=== PATIENT | female | born 1970 | race Caucasian/White ===

== ENCOUNTER 2021-01-15 18:37 | Inpatient (IN) | payer OTHER ==
[2021-01-15] MEDS ORDERED: Dexamethasone 10 MG/ML VIAL ONE (19:11)
[2021-01-15] MEDS ORDERED: Acetaminophen 500 MG TAB ONE (19:11)
[2021-01-15 19:22] LABS: #Monocytes 0.4 10x3/uL (0.0-1.1); #Neutrophils 2.7 10x3/uL (1.5-8.4); %Basophils 0.2 % (0.0-2.0); %Lymphocytes 22.2 % (18.0-47.0); %Monocytes 9.6 % (0.0-10.0); %Neutrophils 67.3 % (40.0-75.0); Hemoglobin 13.4 g/dL (12.0-15.5); Mean Corpuscular HGB CONC 32.4 g/dL (32.0-36.0); Mean Corpuscular Hemoglobin 27.9 pg (27.0-33.0); Mean Corpuscular Volume 86.3 fl (81.6-98.3); Platelet Count 173 10x3/uL (150-450); RBC Distribution Width 13.5 % (11.5-14.5); White Blood Cell (WBC) Count 4.1 10x3/uL (3.5-10.5)
[2021-01-15 19:40] LABS: BHCG - Serum Negative (NEGATIVE); Pregs Control Background? CLEAR/WHITE (CLR/WHITE); Pregs Control Bar Appear? YES (CONTROL BAR)
[2021-01-15 19:45] LABS: ALT (SGPT) 13 U/L (8-55); AST (SGOT) 32 U/L (5-34); Albumin 3.7 g/dL (3.5-5.0); Alkaline Phosphatase 44 U/L (40-110); Anion Gap 14 mmol/L (10-20); BUN (Urea Nitrogen) 9 mg/dL (7.0-18.7); Bilirubin, Total 0.4 mg/dL (0.2-1.2); Calc. Creatinine Clearance 0 mL/min (70-130); Calcium 8.7 mg/dL (7.8-10.44); Carbon Dioxide 25 mmol/L (22-29); Chloride 101 mmol/L (98-107); Globulin 3.1 g/dL (2.4-3.5); Glucose 104 mg/dL (70-105); Potassium 3.8 mmol/L (3.5-5.1); Protein, Total 6.8 g/dL (6.0-8.3); Sodium 136 mmol/L (136-145)
[2021-01-15 20:02] LABS: Thyroid Stimulating Hormone 1.5467 uIU/mL (0.35-4.94)
[2021-01-15] MEDS ORDERED: Zolpidem Tartrate 5 MG TAB PO PRN (20:50)
[2021-01-15] MEDS ORDERED: HYDROcodone/Acetaminophen 5/325 mg Tablet PO PRN ×2 (20:50)
[2021-01-15] MEDS ORDERED: Acetaminophen 325 MG TAB PO PRN (20:50)
[2021-01-15] MEDS ORDERED: Guaifenesin DM 100-10/5 ML UDCUP PO PRN (20:50)
[2021-01-15] MEDS ORDERED: Calcium Carbonate 500 MG ChewTAB PO PRN (20:50)
[2021-01-15] MEDS ORDERED: Ventolin HFA Inhaler 60 PUFF INHALER INH PRN (20:53)
[2021-01-15] MEDS ORDERED: Benzonatate 100 MG CAP PO SCH (22:30)
[2021-01-15 23:01] VITALS: BMI 33.0
[2021-01-16] MEDS: Levothyroxine Sodium 88 MCG TAB PO SCH (05:33)
[2021-01-16 06:15] LABS: ALT (SGPT) 14 U/L (8-55); AST (SGOT) 29 U/L (5-34); Albumin 3.5 g/dL (3.5-5.0); Alkaline Phosphatase 50 U/L (40-110); Anion Gap 14 mmol/L (10-20); BUN (Urea Nitrogen) 9 mg/dL (7.0-18.7); Bilirubin, Total 0.3 mg/dL (0.2-1.2); CRP (Inflammatory) 7.33 mg/dL (= or < 0.5); Calc. Creatinine Clearance 111 mL/min (70-130); Calcium 8.9 mg/dL (7.8-10.44); Carbon Dioxide 27 mmol/L (22-29); Chloride 102 mmol/L (98-107); Globulin 3.1 g/dL (2.4-3.5); Glucose 187 mg/dL (70-105); Potassium 4.2 mmol/L (3.5-5.1); Protein, Total 6.6 g/dL (6.0-8.3); Sodium 139 mmol/L (136-145)
[2021-01-16 06:25] LABS: #Monocytes 0.1 10x3/uL (0.0-1.1); #Neutrophils 1.9 10x3/uL (1.5-8.4); %Basophils 0.4 % (0.0-2.0); %Lymphocytes 20.7 % (18.0-47.0); %Monocytes 5.1 % (0.0-10.0); Hemoglobin 13.6 g/dL (12.0-15.5); Mean Corpuscular HGB CONC 31.4 g/dL (32.0-36.0); Mean Corpuscular Hemoglobin 28.2 pg (27.0-33.0); Mean Corpuscular Volume 89.6 fl (81.6-98.3); Platelet Count 189 10x3/uL (150-450); RBC Distribution Width 13.7 % (11.5-14.5); Red Blood Cell (RBC) Count 4.83 10x6/uL (3.90-5.03); White Blood Cell (WBC) Count 2.6 10x3/uL (3.5-10.5)
[2021-01-16] MEDS: Zinc Gluconate 50 MG TAB PO SCH (08:35)
[2021-01-16] MEDS: Dexamethasone 4 mg/ml Vial SLOW IVP SCH (08:35)
[2021-01-16] MEDS: Enoxaparin Sodium 40 MG/0.4 ML SYRINGE SC SCH (08:35)
[2021-01-16] MEDS: Benzonatate 100 MG CAP PO SCH ×3 (08:35→20:28)
[2021-01-16] MEDS: Aspirin 81 mg Enteric Coated Tablet PO SCH (08:35)
[2021-01-16] MEDS: Ascorbic Acid 500 mg Chewable Tablet PO SCH (08:35)
[2021-01-16] MEDS: Cholecalciferol 1,000 UNITS (25 MCG) TAB PO SCH (08:35)
[2021-01-16] MEDS ORDERED: REMDESIVIR 200 MG in Sodium Chloride 0.9% 250 ML 210 ML IV SCH (10:00)
[2021-01-17 05:54] LABS: #Monocytes 0.7 10x3/uL (0.0-1.1); #Neutrophils 10.8 10x3/uL (1.5-8.4); %Basophils 0.2 % (0.0-2.0); %Lymphocytes 6.1 % (18.0-47.0); %Neutrophils 86.9 % (40.0-75.0); Hemoglobin 13.5 g/dL (12.0-15.5); Mean Corpuscular HGB CONC 32.1 g/dL (32.0-36.0); Mean Corpuscular Volume 87.3 fl (81.6-98.3); Platelet Count 240 10x3/uL (150-450); RBC Distribution Width 13.4 % (11.5-14.5); Red Blood Cell (RBC) Count 4.82 10x6/uL (3.90-5.03); White Blood Cell (WBC) Count 12.4 10x3/uL (3.5-10.5)
[2021-01-17] MEDS: Levothyroxine Sodium 88 MCG TAB PO SCH (06:16)
[2021-01-17 06:44] LABS: ALT (SGPT) 17 U/L (8-55); AST (SGOT) 29 U/L (5-34); Albumin 3.3 g/dL (3.5-5.0); Alkaline Phosphatase 55 U/L (40-110); Anion Gap 17 mmol/L (10-20); BUN (Urea Nitrogen) 15 mg/dL (7.0-18.7); Bilirubin, Direct 0.1 mg/dL (0.1-0.3); Bilirubin, Total 0.3 mg/dL (0.2-1.2); Calc. Creatinine Clearance 104 mL/min (70-130); Calcium 8.7 mg/dL (7.8-10.44); Carbon Dioxide 24 mmol/L (22-29); Chloride 103 mmol/L (98-107); Glucose 140 mg/dL (70-105); Potassium 3.9 mmol/L (3.5-5.1); Protein, Total 6.3 g/dL (6.0-8.3); Sodium 140 mmol/L (136-145)
[2021-01-17] MEDS: Ascorbic Acid 500 mg Chewable Tablet PO SCH (08:05)
[2021-01-17] MEDS: Dexamethasone 4 mg/ml Vial SLOW IVP SCH (08:05)
[2021-01-17] MEDS: Benzonatate 100 MG CAP PO SCH ×3 (08:05→20:36)
[2021-01-17] MEDS: Enoxaparin Sodium 40 MG/0.4 ML SYRINGE SC SCH (08:05)
[2021-01-17] MEDS: Cholecalciferol 1,000 UNITS (25 MCG) TAB PO SCH (08:05)
[2021-01-17] MEDS: Zinc Gluconate 50 MG TAB PO SCH (08:05)
[2021-01-17] MEDS: Aspirin 81 mg Enteric Coated Tablet PO SCH (08:06)
[2021-01-17] MEDS: REMDESIVIR 100 MG in Sodium Chloride 0.9% 250 ML 230 ML IV SCH (10:14)
[2021-01-18 04:56] LABS: Hemoglobin 14.2 g/dL (12.0-15.5); Mean Corpuscular HGB CONC 31.6 g/dL (32.0-36.0); Mean Corpuscular Hemoglobin 28.3 pg (27.0-33.0); Mean Corpuscular Volume 89.4 fl (81.6-98.3); Mean Platelet Volume 8.9 fl (7.4-10.4); Platelet Count 296 10x3/uL (150-450); RBC Distribution Width 13.7 % (11.5-14.5); Red Blood Cell (RBC) Count 5.02 10x6/uL (3.90-5.03); White Blood Cell (WBC) Count 10.8 10x3/uL (3.5-10.5)
[2021-01-18 05:20] LABS: ALT (SGPT) 17 U/L (8-55); AST (SGOT) 30 U/L (5-34); Albumin 3.6 g/dL (3.5-5.0); Alkaline Phosphatase 61 U/L (40-110); Anion Gap 14 mmol/L (10-20); BUN (Urea Nitrogen) 17 mg/dL (7.0-18.7); Bilirubin, Direct 0.2 mg/dL (0.1-0.3); Bilirubin, Total 0.3 mg/dL (0.2-1.2); Calc. Creatinine Clearance 105 mL/min (70-130); Calcium 9.4 mg/dL (7.8-10.44); Carbon Dioxide 28 mmol/L (22-29); Chloride 101 mmol/L (98-107); Glucose 161 mg/dL (70-105); Potassium 3.7 mmol/L (3.5-5.1); Protein, Total 7.2 g/dL (6.0-8.3); Sodium 139 mmol/L (136-145)
[2021-01-18] MEDS: Levothyroxine Sodium 88 MCG TAB PO SCH (06:21)
[2021-01-18] MEDS: REMDESIVIR 100 MG in Sodium Chloride 0.9% 250 ML 230 ML IV SCH (08:41)
[2021-01-18] MEDS: Enoxaparin Sodium 40 MG/0.4 ML SYRINGE SC SCH (08:41)
[2021-01-18] MEDS: Zinc Gluconate 50 MG TAB PO SCH (08:42)
[2021-01-18] MEDS: Cholecalciferol 1,000 UNITS (25 MCG) TAB PO SCH (08:42)
[2021-01-18] MEDS: Benzonatate 100 MG CAP PO SCH ×3 (08:42→20:02)
[2021-01-18] MEDS: Dexamethasone 4 mg/ml Vial SLOW IVP SCH (08:42)
[2021-01-18] MEDS: Ascorbic Acid 500 mg Chewable Tablet PO SCH (08:42)
[2021-01-18] MEDS: Aspirin 81 mg Enteric Coated Tablet PO SCH (08:42)
[2021-01-18] MEDS ORDERED: Enoxaparin Sodium 80 MG/0.8 ML SYRINGE SC SCH (11:45)
[2021-01-18 11:55] LABS: Hemoglobin A1c 6.1 % (4.0-6.0)
[2021-01-18] MEDS: Enoxaparin Sodium 80 MG/0.8 ML SYRINGE SC SCH (20:02)
[2021-01-19 05:13] LABS: ALT (SGPT) 16 U/L (8-55); AST (SGOT) 24 U/L (5-34); Albumin 3.1 g/dL (3.5-5.0); Alkaline Phosphatase 51 U/L (40-110); Bilirubin, Direct 0.2 mg/dL (0.1-0.3); Bilirubin, Total 0.4 mg/dL (0.2-1.2); Protein, Total 6.2 g/dL (6.0-8.3)
[2021-01-19] MEDS: Levothyroxine Sodium 88 MCG TAB PO SCH ×2 (05:49→07:17)
[2021-01-19] MEDS ORDERED: Enoxaparin Sodium 80 MG/0.8 ML SYRINGE ONE (07:40)
[2021-01-19] MEDS: Benzonatate 100 MG CAP PO SCH ×3 (08:46→20:32)
[2021-01-19] MEDS: Cholecalciferol 1,000 UNITS (25 MCG) TAB PO SCH (08:46)
[2021-01-19] MEDS: Aspirin 81 mg Enteric Coated Tablet PO SCH (08:46)
[2021-01-19] MEDS: Ascorbic Acid 500 mg Chewable Tablet PO SCH (08:46)
[2021-01-19] MEDS: Dexamethasone 4 mg/ml Vial SLOW IVP SCH (08:48)
[2021-01-19] MEDS: Enoxaparin Sodium 80 MG/0.8 ML SYRINGE SC SCH (08:48)
[2021-01-19] MEDS: Zinc Gluconate 50 MG TAB PO SCH (08:50)
[2021-01-19] MEDS: REMDESIVIR 100 MG in Sodium Chloride 0.9% 250 ML 230 ML IV SCH (08:51)
[2021-01-20] MEDS: Levothyroxine Sodium 88 MCG TAB PO SCH (05:47)
[2021-01-20 06:03] LABS: ALT (SGPT) 32 U/L (8-55); AST (SGOT) 57 U/L (5-34); Alkaline Phosphatase 77 U/L (40-110); Bilirubin, Direct 0.2 mg/dL (0.1-0.3); Bilirubin, Total 0.4 mg/dL (0.2-1.2)
[2021-01-20] MEDS: Benzonatate 100 MG CAP PO SCH ×4 (08:23→19:36)
[2021-01-20] MEDS: Dexamethasone 4 mg/ml Vial SLOW IVP SCH (08:23)
[2021-01-20] MEDS: Cholecalciferol 1,000 UNITS (25 MCG) TAB PO SCH (08:23)
[2021-01-20] MEDS: Ascorbic Acid 500 mg Chewable Tablet PO SCH (08:23)
[2021-01-20] MEDS: Aspirin 81 mg Enteric Coated Tablet PO SCH (08:23)
[2021-01-20] MEDS: Enoxaparin Sodium 40 MG/0.4 ML SYRINGE SC SCH (08:23)
[2021-01-20] MEDS: Zinc Gluconate 50 MG TAB PO SCH (08:26)
[2021-01-20] MEDS: REMDESIVIR 100 MG in Sodium Chloride 0.9% 250 ML 230 ML IV SCH (08:54)
[2021-01-21] MEDS: Levothyroxine Sodium 88 MCG TAB PO SCH (05:29)
[2021-01-21 06:22] LABS: #Basophils 0.1 10x3/uL (0.0-0.2); #Monocytes 0.8 10x3/uL (0.0-1.1); #Neutrophils 7.4 10x3/uL (1.5-8.4); %Basophils 0.5 % (0.0-2.0); %Lymphocytes 7.6 % (18.0-47.0); %Monocytes 8.2 % (0.0-10.0); %Neutrophils 79.1 % (40.0-75.0); Hemoglobin 13.2 g/dL (12.0-15.5); Mean Corpuscular HGB CONC 31.7 g/dL (32.0-36.0); Mean Corpuscular Hemoglobin 27.6 pg (27.0-33.0); Mean Corpuscular Volume 87.1 fl (81.6-98.3); Mean Platelet Volume 8.6 fl (7.4-10.4); Platelet Count 426 10x3/uL (150-450); Red Blood Cell (RBC) Count 4.79 10x6/uL (3.90-5.03); White Blood Cell (WBC) Count 9.3 10x3/uL (3.5-10.5)
[2021-01-21 06:25] LABS: ALT (SGPT) 31 U/L (8-55); AST (SGOT) 25 U/L (5-34); Albumin 2.9 g/dL (3.5-5.0); Alkaline Phosphatase 51 U/L (40-110); Anion Gap 14 mmol/L (10-20); BUN (Urea Nitrogen) 16 mg/dL (7.0-18.7); Bilirubin, Total 0.5 mg/dL (0.2-1.2); CRP (Inflammatory) 1.64 mg/dL (= or < 0.5); Calc. Creatinine Clearance 112 mL/min (70-130); Calcium 8.6 mg/dL (7.8-10.44); Carbon Dioxide 26 mmol/L (22-29); Chloride 102 mmol/L (98-107); Globulin 2.5 g/dL (2.4-3.5); Glucose 176 mg/dL (70-105); Potassium 4.2 mmol/L (3.5-5.1); Protein, Total 5.4 g/dL (6.0-8.3); Sodium 138 mmol/L (136-145)
[2021-01-21] MEDS: Dexamethasone 4 mg/ml Vial SLOW IVP SCH (08:28)
[2021-01-21] MEDS: Aspirin 81 mg Enteric Coated Tablet PO SCH (08:28)
[2021-01-21] MEDS: Ascorbic Acid 500 mg Chewable Tablet PO SCH (08:28)
[2021-01-21] MEDS: Zinc Gluconate 50 MG TAB PO SCH (08:28)
[2021-01-21] MEDS: Cholecalciferol 1,000 UNITS (25 MCG) TAB PO SCH (08:28)
[2021-01-21] MEDS: Benzonatate 100 MG CAP PO SCH ×3 (08:28→20:17)
[2021-01-21] MEDS: Enoxaparin Sodium 40 MG/0.4 ML SYRINGE SC SCH ×2 (08:28→20:23)
[2021-01-22 04:46] LABS: Anion Gap 15 mmol/L (10-20); BUN (Urea Nitrogen) 19 mg/dL (7.0-18.7); Calc. Creatinine Clearance 112 mL/min (70-130); Calcium 8.9 mg/dL (7.8-10.44); Carbon Dioxide 26 mmol/L (22-29); Chloride 99 mmol/L (98-107); Glucose 263 mg/dL (70-105); Potassium 4.7 mmol/L (3.5-5.1); Sodium 135 mmol/L (136-145)
[2021-01-22] MEDS: Levothyroxine Sodium 88 MCG TAB PO SCH (06:23)
[2021-01-22] MEDS: Aspirin 81 mg Enteric Coated Tablet PO SCH (08:03)
[2021-01-22] MEDS: Cholecalciferol 1,000 UNITS (25 MCG) TAB PO SCH (08:03)
[2021-01-22] MEDS: Dexamethasone 4 mg/ml Vial SLOW IVP SCH (08:03)
[2021-01-22] MEDS: Benzonatate 100 MG CAP PO SCH ×4 (08:03→20:34)
[2021-01-22] MEDS: Ascorbic Acid 500 mg Chewable Tablet PO SCH (08:03)
[2021-01-22] MEDS: Zinc Gluconate 50 MG TAB PO SCH (08:04)
[2021-01-22] MEDS: Enoxaparin Sodium 40 MG/0.4 ML SYRINGE SC SCH ×2 (08:04→20:07)
[2021-01-22] MEDS ORDERED: Dextrose 5% in Water 1,000 ML IV PRN (09:56)
[2021-01-22] MEDS ORDERED: Dextrose 50% Abboject 50 ML SYRINGE SLOW IVP PRN (09:56)
[2021-01-22] MEDS: HumaLOG 300 UNITS/3 ML VIAL SC PRN ×3 (12:31→20:32)
[2021-01-23] MEDS: Levothyroxine Sodium 88 MCG TAB PO SCH (05:27)
[2021-01-23] MEDS: HumaLOG 300 UNITS/3 ML VIAL SC PRN ×3 (06:07→22:04)
[2021-01-23 06:35] LABS: Hemoglobin 14.5 g/dL (12.0-15.5); Mean Corpuscular HGB CONC 32.3 g/dL (32.0-36.0); Mean Corpuscular Hemoglobin 27.9 pg (27.0-33.0); Mean Corpuscular Volume 86.5 fl (81.6-98.3); Mean Platelet Volume 8.2 fl (7.4-10.4); Platelet Count 520 10x3/uL (150-450); RBC Distribution Width 13.3 % (11.5-14.5); Red Blood Cell (RBC) Count 5.19 10x6/uL (3.90-5.03); White Blood Cell (WBC) Count 10.4 10x3/uL (3.5-10.5)
[2021-01-23 06:45] LABS: ALT (SGPT) 53 U/L (8-55); AST (SGOT) 37 U/L (5-34); Albumin 3.3 g/dL (3.5-5.0); Alkaline Phosphatase 64 U/L (40-110); Anion Gap 14 mmol/L (10-20); BUN (Urea Nitrogen) 19 mg/dL (7.0-18.7); Bilirubin, Total 0.5 mg/dL (0.2-1.2); CRP (Inflammatory) 0.77 mg/dL (= or < 0.5); Calc. Creatinine Clearance 111 mL/min (70-130); Calcium 8.8 mg/dL (7.8-10.44); Carbon Dioxide 29 mmol/L (22-29); Chloride 99 mmol/L (98-107); Glucose 169 mg/dL (70-105); Potassium 4.7 mmol/L (3.5-5.1); Protein, Total 6.3 g/dL (6.0-8.3); Sodium 137 mmol/L (136-145)
[2021-01-23 06:58] LABS: MDiff Complete? YES
[2021-01-23 07:02] LABS: Lymphocytes 4 % (21-51); Metamyelocyte 2 % (0-0); Monocytes 7 % (0-10); Myelocyte 1 % (0-0); Neutrophil 85 % (42-75); Reactive Lymphocytes 1 % (0-10)
[2021-01-23 07:03] LABS: Platelet Morphology Comment Appears Increased; RBC Morphology Normal
[2021-01-23] MEDS: Enoxaparin Sodium 40 MG/0.4 ML SYRINGE SC SCH ×2 (08:53→21:20)
[2021-01-23] MEDS: Aspirin 81 mg Enteric Coated Tablet PO SCH (08:54)
[2021-01-23] MEDS: Ascorbic Acid 500 mg Chewable Tablet PO SCH (08:54)
[2021-01-23] MEDS: Cholecalciferol 1,000 UNITS (25 MCG) TAB PO SCH (08:54)
[2021-01-23] MEDS: Dexamethasone 4 mg/ml Vial SLOW IVP SCH (08:54)
[2021-01-23] MEDS: Zinc Gluconate 50 MG TAB PO SCH (08:54)
[2021-01-23] MEDS: Benzonatate 100 MG CAP PO SCH ×3 (09:28→21:20)
[2021-01-24] MEDS: Levothyroxine Sodium 88 MCG TAB PO SCH (05:15)
[2021-01-24] MEDS: Dexamethasone 4 mg/ml Vial SLOW IVP SCH (09:20)
[2021-01-24] MEDS: Cholecalciferol 1,000 UNITS (25 MCG) TAB PO SCH (09:20)
[2021-01-24] MEDS: Aspirin 81 mg Enteric Coated Tablet PO SCH (09:20)
[2021-01-24] MEDS: Benzonatate 100 MG CAP PO SCH ×3 (09:20→23:10)
[2021-01-24] MEDS: Ascorbic Acid 500 mg Chewable Tablet PO SCH (09:20)
[2021-01-24] MEDS: Enoxaparin Sodium 40 MG/0.4 ML SYRINGE SC SCH (09:21)
[2021-01-24] MEDS: Zinc Gluconate 50 MG TAB PO SCH (09:21)
[2021-01-24] MEDS: HumaLOG 300 UNITS/3 ML VIAL SC PRN (20:51)
[2021-01-25 04:45] LABS: #Basophils 0.1 10x3/uL (0.0-0.2); #Monocytes 1.1 10x3/uL (0.0-1.1); #Neutrophils 9.4 10x3/uL (1.5-8.4); %Basophils 0.4 % (0.0-2.0); %Eosinophils 0.3 % (0.0-6.0); %Neutrophils 80.8 % (40.0-75.0); Hemoglobin 13.5 g/dL (12.0-15.5); Mean Corpuscular HGB CONC 31.4 g/dL (32.0-36.0); Mean Corpuscular Hemoglobin 27.7 pg (27.0-33.0); Mean Corpuscular Volume 88.3 fl (81.6-98.3); Mean Platelet Volume 8.3 fl (7.4-10.4); Platelet Count 530 10x3/uL (150-450); RBC Distribution Width 13.4 % (11.5-14.5); Red Blood Cell (RBC) Count 4.87 10x6/uL (3.90-5.03); White Blood Cell (WBC) Count 11.7 10x3/uL (3.5-10.5)
[2021-01-25 05:06] LABS: ALT (SGPT) 40 U/L (8-55); AST (SGOT) 19 U/L (5-34); Albumin 3.3 g/dL (3.5-5.0); Alkaline Phosphatase 66 U/L (40-110); Anion Gap 13 mmol/L (10-20); BUN (Urea Nitrogen) 20 mg/dL (7.0-18.7); Bilirubin, Total 0.5 mg/dL (0.2-1.2); Calc. Creatinine Clearance 114 mL/min (70-130); Calcium 8.7 mg/dL (7.8-10.44); Carbon Dioxide 26 mmol/L (22-29); Chloride 102 mmol/L (98-107); Globulin 2.8 g/dL (2.4-3.5); Glucose 182 mg/dL (70-105); Potassium 4.7 mmol/L (3.5-5.1); Protein, Total 6.1 g/dL (6.0-8.3); Sodium 136 mmol/L (136-145)
[2021-01-25] MEDS: Levothyroxine Sodium 88 MCG TAB PO SCH (06:28)
[2021-01-25] MEDS: Dexamethasone 4 mg/ml Vial SLOW IVP SCH (08:31)
[2021-01-25] MEDS: Benzonatate 100 MG CAP PO SCH ×3 (08:32→22:19)
[2021-01-25] MEDS: Zinc Gluconate 50 MG TAB PO SCH (08:32)
[2021-01-25] MEDS: Ascorbic Acid 500 mg Chewable Tablet PO SCH (08:32)
[2021-01-25] MEDS: Cholecalciferol 1,000 UNITS (25 MCG) TAB PO SCH (08:32)
[2021-01-25] MEDS: Aspirin 81 mg Enteric Coated Tablet PO SCH (08:32)
[2021-01-25] MEDS: Enoxaparin Sodium 40 MG/0.4 ML SYRINGE SC SCH (08:33)
[2021-01-26] MEDS: Levothyroxine Sodium 88 MCG TAB PO SCH (05:09)
[2021-01-26] MEDS: Ascorbic Acid 500 mg Chewable Tablet PO SCH (08:48)
[2021-01-26] MEDS: Zinc Gluconate 50 MG TAB PO SCH (08:48)
[2021-01-26] MEDS: Enoxaparin Sodium 40 MG/0.4 ML SYRINGE SC SCH (08:49)
[2021-01-26] MEDS: Cholecalciferol 1,000 UNITS (25 MCG) TAB PO SCH (08:49)
[2021-01-26] MEDS: Dexamethasone 4 MG TAB PO SCH (08:49)
[2021-01-26] MEDS: Aspirin 81 mg Enteric Coated Tablet PO SCH (08:49)
[2021-01-26] MEDS: Benzonatate 100 MG CAP PO SCH ×3 (08:50→22:04)
[2021-01-27] MEDS: Levothyroxine Sodium 88 MCG TAB PO SCH (05:28)
[2021-01-27 10:04] VITALS: BP 144/84; TEMP 98.4
[2021-01-27] MEDS: Zinc Gluconate 50 MG TAB PO SCH (10:20)
[2021-01-27] MEDS: Cholecalciferol 1,000 UNITS (25 MCG) TAB PO SCH (10:20)
[2021-01-27] MEDS: Enoxaparin Sodium 40 MG/0.4 ML SYRINGE SC SCH (10:20)
[2021-01-27] MEDS: Ascorbic Acid 500 mg Chewable Tablet PO SCH (10:20)
[2021-01-27] MEDS: Benzonatate 100 MG CAP PO SCH (10:20)
[2021-01-27] MEDS: Aspirin 81 mg Enteric Coated Tablet PO SCH (10:20)
[2021-01-27] MEDS: Dexamethasone 4 MG TAB PO SCH (10:20)
[2021-01-27 10:34] LABS: ALT (SGPT) 36 U/L (8-55); AST (SGOT) 18 U/L (5-34); Albumin 3.7 g/dL (3.5-5.0); Alkaline Phosphatase 53 U/L (40-110); Anion Gap 11 mmol/L (10-20); BUN (Urea Nitrogen) 19 mg/dL (7.0-18.7); Bilirubin, Total 0.7 mg/dL (0.2-1.2); Calc. Creatinine Clearance 112 mL/min (70-130); Carbon Dioxide 29 mmol/L (22-29); Chloride 101 mmol/L (98-107); Globulin 3.3 g/dL (2.4-3.5); Glucose 94 mg/dL (70-105); Sodium 137 mmol/L (136-145)
[2021-01-27 10:39] LABS: #Eosinphils 0.1 10x3/uL (0.0-0.5); #Monocytes 1.5 10x3/uL (0.0-1.1); #Neutrophils 8.6 10x3/uL (1.5-8.4); %Basophils 0.3 % (0.0-2.0); %Eosinophils 0.5 % (0.0-6.0); %Lymphocytes 10.8 % (18.0-47.0); %Monocytes 12.7 % (0.0-10.0); Hemoglobin 14.7 g/dL (12.0-15.5); Mean Corpuscular Hemoglobin 28.3 pg (27.0-33.0); Mean Corpuscular Volume 88.5 fl (81.6-98.3); Mean Platelet Volume 8.1 fl (7.4-10.4); Platelet Count 468 10x3/uL (150-450); RBC Distribution Width 13.9 % (11.5-14.5); White Blood Cell (WBC) Count 11.6 10x3/uL (3.5-10.5)
== END 2021-01-27 15:51 | disposition home or self-care (01) | DRG 871 ==
LOC: CSHERS 18:37 → CSHTELE 21:57
PROVIDERS: ADMIT Student in an Organized Health Care Education/Training Program; ATTEND Internal Medicine
PROC: 8E0ZXY6 Isolation (ICD-10-PCS; principal; 2021-01-16)
PROC: XW033E5 Introduction of Remdesivir Anti-infective into Peripheral Vein, Percutaneous Approach, New Technology Group 5 (ICD-10-PCS; 2021-01-16)
PROC: 3E0333Z Introduction of Anti-inflammatory into Peripheral Vein, Percutaneous Approach (ICD-10-PCS; 2021-01-16)
DX: A41.89 Other specified sepsis (principal); U07.1 COVID-19; J96.01 Acute respiratory failure with hypoxia; E03.9 Hypothyroidism, unspecified; M79.669 Pain in unspecified lower leg; T38.0X5A Adverse effect of glucocorticoids and synthetic analogues, initial encounter; Y92.230 Patient room in hospital as the place of occurrence of the external cause; R73.9 Hyperglycemia, unspecified; Z79.890 Hormone replacement therapy; R73.03 Prediabetes
CPT/HCPCS: 36415; 36416; 71045; 71275; 80048; 80053; 80076; 82728; 83036; 83605; 83735; 84443; 84484; 84703; 85025; 85027; 85379; 85652; 86140; 93005; 93970; 94640; 94664; 94760; 96374; J1100; J1650; J1815; J7050; J8540

== ENCOUNTER 2022-12-20 10:39 | Outpatient (CLI) | payer OTHER | END 2022-12-20 10:40 | disposition home or self-care (01) | LOC: CSHMAMMO 10:39 | PROVIDERS: ATTEND Internal Medicine | DX: Z12.31 Encounter for screening mammogram for malignant neoplasm of breast (principal) | CPT/HCPCS: 77063; 77067 ==

== ENCOUNTER 2023-03-18 15:24 | Outpatient (CLI) | payer OTHER | END 2023-03-18 15:25 | disposition home or self-care (01) | LOC: CSHULT 15:24 | PROVIDERS: ATTEND Internal Medicine | DX: R10.2 Pelvic and perineal pain (principal); D25.1 Intramural leiomyoma of uterus; D25.0 Submucous leiomyoma of uterus; N83.01 Follicular cyst of right ovary; Z97.5 Presence of (intrauterine) contraceptive device | CPT/HCPCS: 76856 ==

== ENCOUNTER 2024-02-20 15:03 | Outpatient (CLI) | payer OTHER | END 2024-02-20 15:04 | disposition home or self-care (01) | LOC: CSHMAMMO 15:03 | PROVIDERS: ATTEND Internal Medicine | DX: Z12.31 Encounter for screening mammogram for malignant neoplasm of breast (principal) | CPT/HCPCS: 77063; 77067 ==

== ENCOUNTER 2025-02-24 11:45 | Outpatient (CLI) | payer OTHER | END 2025-02-24 11:46 | disposition home or self-care (01) | LOC: CSHMAMMO 11:45 | PROVIDERS: ATTEND Internal Medicine | DX: Z12.31 Encounter for screening mammogram for malignant neoplasm of breast (principal) | CPT/HCPCS: 77063; 77067 ==